=== PATIENT | female | born 1990 | race Caucasian/White ===

== ENCOUNTER → 2017-04-29 | Outpatient (CLI) | payer BC ==
--- NOTE | 2017-04-29 11:42 | DIAGNOSTIC IMAGING REPORT ---
RIGHT FOOT MIN 3 VIEWS HISTORY: 27 years-old Female RIGHT 1ST METATARSAL PAIN S/P FALL Right COMPARISON: None available TECHNIQUE: 3 views of the right foot FINDINGS: Mid foot alignment is anatomic. 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 Note is made of an os peroneum. No acute fracture, dislocation, significant degenerative changes or stress fracture. There is mild dorsal forefoot soft tissue swelling. IMPRESSION: Mild dorsal forefoot soft tissue swelling without acute osseous abnormality. The above report was generated using voice recognition software. It may contain grammatical, syntax or spelling errors. Electronically signed by: Abner Akbar M.D. 04/29/2017 11:40 AM Dictated Date/Time: 04/29/2017 11:39 AM
== END | disposition home or self-care (01) ==
LOC: C.RDSM 15:19
PROVIDERS: ATTEND Family Medicine
DX: M79.673 Pain in unspecified foot (principal)

== ENCOUNTER 2019-12-19 02:31 | Inpatient (IN) ==
[2019-12-19] MEDS ORDERED: LACTATED RINGER'S 1,000 ML IV PRN (03:18)
[2019-12-19] MEDS ORDERED: OXYTOCIN 30 UNITS/500 ML BAG IV PRN (03:18)
[2019-12-19 03:52] LABS: Hematocrit (blood only) 36.2 % (37-47); Mean Corpuscular Hemoglobin 29.1 pg (25-34); Mean Corpuscular Volume 87.9 fL (80-100); Mean Platelet Volume 11.5 fL (7.4-10.4); Platelet Count 178 K/uL (130-400); RDW Coefficient of Variation 14.4 % (11.5-14.5); RDW Standard Deviation 46.3 fL (36.4-46.3); Red Blood Count 4.12 M/uL (4.2-5.4); White Blood Count 13.07 K/uL (4.8-10.8)
[2019-12-19 04:11] LABS: Mean Corpuscular Hgb Conc 33.1 g/dL (32-36)
[2019-12-19] MEDS ORDERED: CITRIC ACID/SODIUM CITRATE 15 ML UDC PO SCH (06:00)
[2019-12-19] MEDS ORDERED: CEFAZOLIN 2000MG 2,000 MG/15 ML SYR IV SCH (06:00)
--- NOTE | 2019-12-19 08:07 | Labor Progress Brief Note ---
Date of Service December 19, 2019 Subjective Reason For Note: Routine Evaluation Current Pain Level(1-10): 8 Assessment & Plan (1) Rh negative status during : 29yo at 39.3 weeks GA. Labor 1. Fetus: Cat 1 2. Labor: Unchanged, Discussed AROM/Pitocin. Declining intervention at present. Recommend intervention if unchanged at next visit. 3. Vitals: WNL 4. GBS negative (2) Supervision of normal first : Physical Exam Genitourinary: OB Exam Abdomen: + vertex Manual OB Exam: + cervical dilation 5 cm, + cervical effacement 90% and + station 0 OB Exam Monitor Tr acing: + external FHT monitor used, + external uterine monitor used, + category I and + normal FHT variability Results & Data Vital Signs (Past 12 Hours) Vital Signs Temp Pulse Resp BP 12/19/19 07:34 64 132/73 12/19/19 02:58 72 130/77 12/19/19 02:52 36.6 C 72 18 130/77 Coding Level of Care Code None Diagnoses Rh negative status during O26.899; Z67.91 Supervision of normal first Z34.00
--- NOTE | 2019-12-19 09:36 | History & Physical Report ---
Date of Service December 19, 2019 Assessment & Plan (1) Rh negative status during : 29yo at 39.3 weeks GA. Labor 1. Fetus: Cat 1 2. Labor: Will discuss AROM/Pitocin. Declining intervention at present. 3. Vitals: WNL 4. GBS negative (2) Supervision of normal first : History of Present Illness Primary Care Provider: Efren Prescott DO 29yo at 39.3 weeks GA. Presents for labor. Denies VB, LOF. Good FM. complicated by Rh negative Allergies Allergy/AdvReac Type Severity Reaction Status Date / Time doxycycline Allergy Verified 12/15/19 09:14 minocycline Allergy Verified 12/15/19 09:14 Sulfa (Sulfonamide Allergy Verified 12/15/19 09:14 Antibiotics) Home Medications Home Medications Medication Instructions Recorded Confirmed Type PNV cmb#95-ferrous fumarate-FA 1 tab PO DAILY 12/19/19 12/19/19 History [] Patient History Medical History (Updated 06/01/19 @ 20:22 by Susana Gu, ) Chickenpox History of cardiac murmur as a child Surgical History (Updated 05/12/19 @ 09:36 by Fifi Uribe) S/P wisdom tooth extraction Family History (Updated 05/12/19 @ 09:38 by Fifi Uribe) Grandfather (Maternal) Diabetes Grandmother (Maternal) Diabetes Endometriosis Grandfather (Paternal) Diabetes Grandmother (Paternal) Diabetes Social History (Updated 05/12/19 @ 09:40 by Fifi Uribe) Preferred Language: Vietnamese Communication Ability: Effective Quality Assurance Required: No Beliefs That Will Affect Care: None marital status: marital status details: spouse: Efren Rasmussne (31) [phone] Current Living Situation: Spouse Current Living Situation Comment: lives with spouse 2 cats, 1 dog, spouse changes litter. current occupational status: employed current occupation: Teacher Feels Safe at Home: Yes Safety Concerns: Feels Safe At This Time Smoking Status: Never smoker Hx Alcohol Use: No Hx Substance Use: No Physical Exam Genitourinary: Manual OB Exam: + cervical dilation 5 cm, + cervical effacement 90% and + station -1 OB Exam Monitor Tracing: + external FHT monitor used, + external uterine monitor used, + category I and + normal FHT variability; no early decelerations present, no late decelerations present and no variable decelerations Results & Data Vital Signs (Past 12 Hours) Vital Signs Temp Pulse Resp BP 12/19/19 07:34 64 132/73 12/19/19 02:58 72 130/77 12/19/19 02:52 36.6 C 72 18 130/77 Coding Level of Care Code None Diagnoses Rh negative status during O26.899; Z67.91 Supervision of normal first Z34.00
[2019-12-19] MEDS ORDERED: LACTATED RINGER'S 1,000 ML IV SCH ×2 (11:00→13:05)
--- NOTE | 2019-12-19 11:00 | Anesthesiology Consultation ---
Date of Service December 19, 2019 Assessment & Plan ASA ASA2E Proposed Anesthesia Anesthesia Type: Spinal Risk / Benefits Reviewed With: PT / POA / Parent / Guardian, Accepts Plan and Informed Consent Obtained History Surgery Operation Date: 12/19/19 11:15 Proposed Procedures p Section in LD - J. Burton Woodson MD, FACOG Height/Weight Height: 5 ft 6 in Weight: 72.575 kg Allergies Allergy/AdvReac Type Severity Reaction Status Date / Time doxycycline Allergy Verified 12/15/19 09:14 minocycline Allergy Verified 12/15/19 09:14 Sulfa (Sulfonamide Allergy Verified 12/15/19 09:14 Antibiotics) Medications Home Medications Medication Instructions Recorded Confirmed Last Taken PNV cmb#95-ferrous fumarate-FA 1 tab PO DAILY 12/19/19 12/19/19 12/18/19 [] NPO Date Last Intake of Fluids: 12/19/19 Time Last Intake of Fluids: 00:00 Date Last Intake of Solids: 12/19/19 Time Last Intake of Solids: 00:00 Past Medical History Medical History (Updated 06/01/19 @ 20:22 by Susana Gu DO) Chickenpox History of cardiac murmur as a child Exercise / Class Metabolic Activity 1 > 8 Run/Swim/Ski/Tennis Past Family History Family History (Updated 05/12/19 @ 09:38 by Fifi Uribe) Grandfather (Maternal) Diabetes Grandmother (Maternal) Diabetes Endometriosis Grandfather (Paternal) Diabetes Grandmother (Paternal) Diabetes Past Surgical History Surgical History (Updated 05/12/19 @ 09:36 by Fifi Uribe) S/P wisdom tooth extraction Past Anesthesia History No Hx of Anesthesia Complications and No Family Hx of Anesthesia Complications History of PONV No Hx of PONV and No Hx of Motion Sickness Social History Smoking Status: Never smoker Hx Alcohol Use: No Hx Substance Use: No substance use type: does not use Review of Systems denies fever/cough/ colds/ chest pain/ SOB/ VITA Constitutional: no fever and no chills Respiratory: no cough and no dyspnea denies VITA Cardiovascular: no chest pain and no dyspnea on exertion Physical Exam Vital Signs Last Vital Signs Temp 36.6 C 12/19/19 02:52 Pulse 112 H 03/31/20 11:07 Resp 18 12/19/19 02:52 BP 135/88 12/19/19 11:07 ENMT Mouth: no TMJ abnormality and no dentition abnormality Thyromental Distance: > or= 3.5 Finger Breadths Mallampati Class: II Neck neck extension not limited Respiratory normal respiratory effort; no respiratory distress Auscultation: lungs clear to auscultation bilaterally Cardiovascular Rate/Rhythm: regular rate and regular rhythm Neurologic moves all extremities Psychiatric Orientation: alert and oriented x 3 Testing Laboratory Results 12/19/19 03:32
--- NOTE | 2019-12-19 11:01 | Obstetrical Progress Note ---
Date of Service exam is 5 bulging membranes. AROM. Presenting part then palpated ay breech. Confirmed on U/S, breech. Recommend C/S agrees section. The patient was counseled to the nature of the procedure including alternatives such as labor. Risks were discussed including bleeding infection injury to bowel bladder ureter vessels and even baby. Deep Vein thrombosis, pulmonary embolus discussed. Breakdown of incision reviewed. Deep vein thrombosis pulmonary embolus hernia and failure of the incision to heal were discussed Patient verbalized understanding of this and was given ample time to ask questions December 19, 2019 Results & Data Vital Signs (Past 12 Hours) Vital Signs Temp Pulse Resp BP 12/19/19 07:34 64 132/73 12/19/19 02:58 72 130/77 12/19/19 02:52 97.9 F 72 18 130/77 PG Care Time/CCT Total # of Minutes Spent Total Time Spent with Patient: Total time spent is greater than 50% in coordination of care (as documented) at patient's floor/unit and/or counseling patient: Coding Level of Care Code None
[2019-12-19] MEDS ORDERED: CITRIC ACID/SODIUM CITRATE 15 ML UDC ONE (11:02)
[2019-12-19] MEDS ORDERED: MoRPHine SULFATE PF 1 MG/ML 10 ML AMP/VIAL ONE (11:06)
[2019-12-19] MEDS ORDERED: fentaNYL citrate 100 MCG/2 ML VIAL ONE (11:06)
[2019-12-19] MEDS ORDERED: OXYTOCIN 10 UNITS/ML VIAL ONE (11:06)
[2019-12-19] MEDS ORDERED: MoRPHine SULFATE PF 1 MG/ML 10 ML AMP/VIAL INT SPINAL ONE (11:44)
[2019-12-19] MEDS ORDERED: NALOXONE HCL 0.08 MG in SYRINGE 1.8 ML IV PRN (11:44)
[2019-12-19] MEDS ORDERED: ePHEDrine sulfate 50 MG/ML AMP IV PRN (11:44)
[2019-12-19] MEDS ORDERED: NALOXONE HCL 1 MG in SODIUM CHLORIDE 0.9% 1000ML 1,000 ML IV PRN (11:44)
[2019-12-19] MEDS ORDERED: DiphenhydrAMINE HCL 50 MG/ML VIAL IV PRN (11:44)
[2019-12-19] MEDS ORDERED: ONDANSETRON INJ 2 MG/ML 2 ML VIAL IV PRN (11:44)
[2019-12-19] MEDS ORDERED: NALBUPHINE HCL INJ 10 MG/ML AMP IV PRN (11:44)
[2019-12-19] MEDS ORDERED: NALOXONE HCL 0.4 MG/1 ML VIAL/CARP IV PRN (11:44)
[2019-12-19] MEDS ORDERED: LACTATED RINGER'S 500 ML IV PRN (11:44)
[2019-12-19] MEDS ORDERED: PROMETHAZINE HCL 25 MG in SODIUM CHLORIDE 0.9% 50 ML IV PRN (11:44)
[2019-12-19] MEDS ORDERED: DC INTRASPINAL MORPHINE SCH (11:45)
[2019-12-19] MEDS ORDERED: NO NARCOTICS OR SEDATIVES SCH (11:45)
[2019-12-19] MEDS ORDERED: SODIUM CHLORIDE 0.9% 1000ML 1,000 ML IV SCH (11:45)
[2019-12-19 12:11] LABS: Base Excess Cord Arterial Bld -2.4 mEq/L (-9-1.8); Base Excess Cord Venous Blood -2.5 mEq/L (-7.7-1.9); CO2 Cord Arterial Blood 53 mmHg (39.1-73.5); Cord Venous Blood HCO3 22 mmol/L (18.4-26.8); Cord Venous Blood PCO2 38 mmHg (30.4-57.2); Cord Venous Blood PO2 28 mmHg (14.1-43.3); Cord Venous Blood pH 7.39 (7.20-7.44); HCO3 Cord Arterial Blood 25 mmol/L (19.7-28.5); Oxygen Sat Cord Arterial Blood < 60.0 % (<60); PO2 Cord Arterial Blood 22 mmHg (4.1-31.7); pH Cord Arterial Blood 7.29 (7.1-7.38)
--- NOTE | 2019-12-19 12:14 | Operative Report ---
PG Post Operative Report Pre & Post Diagnosis Operation Date: 12/19/19 11:15 Pre-Op Diagnosis: Labor, breech presentation. Post-Op Diagnosis: same I identified the patient and participated in the time-out.: Yes Procedure Operation Date: 12/19/19 11:15 Actual Procedures p Section in LD with of live male child at 1135(Not Applicable) - Los Woodson MD, FACOG Surgeon Los Woodson MD, FACOG Optical Engineering Technician Dr. Lundy Estimated Blood Loss 400 Findings Consistent with Post-Op Diagnosis Specimens cord gases, blood Description of Procedure Regional anesthetic was given by anesthesia patient had a Phelan catheter inserted by nursing patient was prepped and draped in supine position with a leftward tilt preoperative antibiotics were given timeout performed Pickups with teeth were used to test the skin site and it was found adequate for incision scalpel used to make a Pfannenstiel incision cutting down through subcutaneous fat through the fascia fascia was then dissected laterally with the curved Tavares's fascia was released superiorly and inferiorly from the rectus muscles with the curved Tavares scissors, rectus muscle split peritoneal cavity entered in a superior location. Opening enlarged to allow exposure bladder retractor placed Metzenbaums used to dissect away the bladder flap low segment transverse incision made on the uterus with scalpel entry was done bluntly with the tenon machine operator's finger hysterotomy incision extended with the tenon machine operator's finger in the usual fashion baby was delivered then by flexion of the breech and pressure from the engineering assistant on the abdomen, legs then delivered, arms swept across the chest and care taken to avoid over extension of the neck, baby was then delivered fully without difficulty without excessive force live vigorous infant cord clamped and cut cord gases obtained cord blood obtained placenta removed manually within ensured all placenta removed with a moist lap sponge uterus exteriorized IV Pitocin had been started by anesthesia and uterine tone improved. The uterus was closed in 2 layers first layer and 0 Monocryl running locked second layer 0 Monocryl nonlocked after generous irrigation and suction of the cul-de-sac and bladder flap regions hemostasis was excellent uterus was placed back in the peritoneal cavity and hemostasis was excellent rectus muscles were inspected and found to be dry fascia closed with 0 Vicryl subcutaneous fat closed with 3-0 Vicryl prior to this subcutaneous fat was irrigated skin closed with 4-0 subcuticular Monocryl incision Steri-Stripped urine was clear at the end of the procedure Note uterus was normal anatomically I attest to the content of the Intraoperative Record and any orders documented therein. Any exceptions are noted below.
--- NOTE | 2019-12-19 12:41 | Anesthesiology Progress Note ---
Date of Service December 19, 2019 Anesthesia Post Procedure Vital Signs Vital Signs: Temp Pulse Resp BP Pulse Ox 12/19/19 12:38 84 98 12/19/19 12:33 90 128/60 98 12/19/19 12:28 83 97 12/19/19 12:25 79 93 12/19/19 12:23 78 100 12/19/19 12:18 79 142/64 H 98 12/19/19 11:07 112 H 135/88 12/19/19 11:00 36.4 C L 18 12/19/19 07:34 36.4 C L 64 20 132/73 12/19/19 02:58 72 130/77 12/19/19 02:52 36.6 C 72 18 130/77 Transfer of Care Handoff Completed per policy Notes Mental Status: alert / awake / arousable and participated in evaluation Patient Amnestic to Procedure: Yes Nausea / Vomiting: adequately controlled Pain: adequately controlled Airway Patency, RR, SpO2: stable & adequate BP & HR: stable & adequate Hydration State: stable & adequate Neuraxial Anesthesia: was administered and sensory block is resolving Anesthetic Complications: no major complications apparent and Pt Satisfied with anesthetic care
[2019-12-19] MEDS ORDERED: SENNA 8.6 MG TAB PO PRN (13:05)
[2019-12-19] MEDS ORDERED: SUPERCREAM 0.870% 15 GM JAR EXT PRN (13:05)
[2019-12-19] MEDS ORDERED: BENZOCAINE 20% AER SPR 82.5 GM CAN EXT PRN (13:05)
[2019-12-19] MEDS ORDERED: MAGNESIUM HYDROXIDE SUSP 30 ML UDC PO PRN (13:05)
[2019-12-19] MEDS ORDERED: HYDROCORTISONE ACETATE 25 MG SUPP PR PRN (13:05)
[2019-12-19] MEDS ORDERED: DIPHTHERIA/TETANUS/PERTUSSIS 0.5 ML SYR/VIAL IM ONE (13:05)
[2019-12-19] MEDS: OXYTOCIN 20 UNITS in LACTATED RINGER'S 1,000 ML IV SCH ×2 (13:33→22:36)
[2019-12-19] MEDS: ACETAMINOPHEN 1,000 MG/100 ML VIAL IV PRN ×2 (14:14→23:51)
[2019-12-19] MEDS: SIMETHICONE 80 MG CHEW PO SCH ×3 (15:10→20:25)
[2019-12-19] MEDS: MoRPHine SULFATE 2 MG/ML CARP IV PRN (16:17)
[2019-12-19] MEDS: DOCUSATE SODIUM 100 MG CAP PO SCH (20:25)
[2019-12-20] MEDS: MoRPHine SULFATE 2 MG/ML CARP IV PRN (04:59)
[2019-12-20] MEDS ORDERED: MEPERIDINE HCL 50 MG/ML CARP IV PRN (05:44)
[2019-12-20] MEDS ORDERED: DiphenhydrAMINE HCL 50 MG/ML VIAL IV PRN (05:44)
[2019-12-20] MEDS ORDERED: KETOROLAC 30 MG/ML VIAL IV PRN (05:44)
[2019-12-20] MEDS ORDERED: PROMETHAZINE HCL 25 MG in SODIUM CHLORIDE 0.9% 50 ML IV PRN (05:44)
[2019-12-20] MEDS ORDERED: ONDANSETRON INJ 2 MG/ML 2 ML VIAL IV PRN (05:44)
[2019-12-20 06:31] LABS: Basophils # (auto) 0.01 K/uL (0-0.2); Basophils % (auto) 0.1 %; Eosinophils # (auto) 0.03 K/uL (0-0.5); Eosinophils % (auto) 0.3 %; Hematocrit (blood only) 29.4 % (37-47); Immature Granulocytes # (auto) 0.03 K/uL (0.00-0.02); Immature Granulocytes % (auto) 0.3 %; Lymphocytes # (auto) 1.45 K/uL (1.2-3.4); Lymphocytes % (auto) 14.8 %; Mean Corpuscular Hemoglobin 29.8 pg (25-34); Mean Corpuscular Volume 87.5 fL (80-100); Mean Platelet Volume 10.9 fL (7.4-10.4); Monocytes # (auto) 0.57 K/uL (0.11-0.59); Monocytes % (auto) 5.8 %; Neutrophils # (auto) 7.73 K/uL (1.4-6.5); Neutrophils % (auto) 78.7 %; Platelet Count 125 K/uL (130-400); RDW Coefficient of Variation 14.5 % (11.5-14.5); Red Blood Count 3.36 M/uL (4.2-5.4); White Blood Count 9.82 K/uL (4.8-10.8)
[2019-12-20] MEDS: OXYCODONE/ACETAMINOPHEN 5mg/325mg TAB PO PRN ×4 (06:42→20:42)
[2019-12-20] MEDS: IBUPROFEN 600 MG TAB PO PRN ×4 (06:42→20:42)
[2019-12-20] MEDS: PRENATAL VITAMIN 1 TAB PO SCH (07:59)
[2019-12-20] MEDS: SIMETHICONE 80 MG CHEW PO SCH ×4 (07:59→20:41)
[2019-12-20] MEDS: DOCUSATE SODIUM 100 MG CAP PO SCH ×2 (08:00→20:41)
--- NOTE | 2019-12-20 08:01 | Obstetrical Progress Note ---
Date of Service December 20, 2019 Assessment & Plan (1) care following delivery: POD #1 Cont current care encourage ambulation Subjective Ambulation: limited ambulation Passing Gas:: No Diet Tolerance:: clear liquids Lochia:: Small Feeding Type:: breast feeding Current Pain Level(1-10): 1 Physical Exam Constitutional WD/WN, vitals as above Respiratory normal respiratory effort, lungs clear to auscultation Cardiovascular RRR, no murmur, no edema Gastrointestinal (Abdomen) normal bowel sounds, soft, nontender, no hepatosplenomegaly (Incision CDI, etc neg) Results & Data Vital Signs (Past 12 Hours) Vital Signs Temp Pulse Resp BP Pulse Ox 12/20/19 05:10 18 96 12/20/19 04:45 98.4 F 70 18 110/69 96 12/20/19 03:30 16 97 12/20/19 02:20 16 97 12/20/19 01:15 18 99 12/20/19 00:15 16 95 12/20/19 00:01 99.1 F 71 16 116/67 95 12/19/19 23:15 16 96 12/19/19 22:00 18 96 12/19/19 21:00 18 96 12/19/19 20:00 18 99
[2019-12-20] MEDS ORDERED: NON-FORMULARY MEDICATION (Pnv Cmb#95-Ferrous Fumarate-Fa [Prenatal] 1 TAB) PO SCH (09:00)
[2019-12-20] MEDS ORDERED: bisacodyL 5 MG TABEC PO SCH (20:00)
[2019-12-21] MEDS: IBUPROFEN 600 MG TAB PO PRN ×5 (00:48→23:59)
[2019-12-21] MEDS: OXYCODONE/ACETAMINOPHEN 5mg/325mg TAB PO PRN ×3 (03:35→19:06)
[2019-12-21 06:27] LABS: Hematocrit (blood only) 28.3 % (37-47); Hemoglobin 9.2 g/dL (12.0-16.0)
[2019-12-21] MEDS: DOCUSATE SODIUM 100 MG CAP PO SCH ×2 (07:55→20:52)
[2019-12-21] MEDS: PRENATAL VITAMIN 1 TAB PO SCH (07:56)
[2019-12-21] MEDS: SIMETHICONE 80 MG CHEW PO SCH ×4 (07:56→20:52)
--- NOTE | 2019-12-21 08:56 | Obstetrical Progress Note ---
Date of Service December 21, 2019 Assessment & Plan (1) care following delivery: Wants d/c today, instructions reviewed. Subjective Ambulation: ambulating normally Voiding: no voiding problems Passing Gas:: Yes Diet Tolerance:: regular diet Lochia:: Small Feeding Type:: breast feeding Physical Exam Constitutional WD/WN, vitals as above Eyes PERRL, conjunctivae normal, anicteric sclerae Neck normal visual inspection Respiratory normal respiratory effort and able to speak in complete sentences; no respiratory distress and no labored breathing Cardiovascular Rate/Rhythm: regular rate and regular rhythm Extremities: no edema Chest (Breasts) Chest: normal inspection of chest Gastrointestinal (Abdomen) Inspection/Auscultation: abdomen normal to inspection and + abdominal surgical incision (c/d/i) Soft, postgravid Psychiatric A+Ox3, euthymic affect Genitourinary OB Exam Abdomen: + fundal height Fundus: + firm and + relation to umbilicus (fundus just below umbilicus); not tender Results & Data Vital Signs (Past 12 Hours) Vital Signs Temp Pulse Resp BP Pulse Ox 12/21/19 08:00 98.1 F 71 18 111/68 97 12/20/19 23:40 98.1 F 71 17 108/64 97
[2019-12-21] MEDS ORDERED: bisacodyL 10 MG SUPP PR PRN (12:11)
[2019-12-22] MEDS: OXYCODONE/ACETAMINOPHEN 5mg/325mg TAB PO PRN ×2 (04:03→10:44)
[2019-12-22] MEDS: IBUPROFEN 600 MG TAB PO PRN ×2 (04:03→08:30)
--- NOTE | 2019-12-22 08:18 | Obstetrical Progress Note ---
Date of Service December 22, 2019 Assessment & Plan (1) care following delivery: satisfactory post-op/ progress D/C to home scripts for percocet/motrin sent to listed pharmacy Subjective Ambulation: ambulating normally Voiding: no voiding problems Passing Gas:: Yes Diet Tolerance:: regular diet Lochia:: Small Feeding Type:: breast feeding Review of Systems All systems reviewed & are unremarkable except as noted in HPI & below Physical Exam Constitutional WD/WN, vitals as above Psychiatric A+Ox3, euthymic affect Genitourinary OB Exam Abdomen: + fundal height Fundus: + firm and + relation to umbilicus (2 below U) Results & Data Vital Signs (Past 12 Hours) Vital Signs Temp Pulse Resp BP Pulse Ox 12/22/19 07:30 97.9 F 73 14 116/70 97 12/21/19 23:30 98.2 F 74 18 130/85
[2019-12-22] MEDS: SIMETHICONE 80 MG CHEW PO SCH (08:30)
[2019-12-22] MEDS: DOCUSATE SODIUM 100 MG CAP PO SCH (08:30)
[2019-12-22] MEDS: PRENATAL VITAMIN 1 TAB PO SCH (08:30)
--- NOTE | 2019-12-24 11:22 | Discharge Summary ---
Date of Service December 24, 2019 Admission HPI Per Admitting Provider 29yo at 39.3 weeks GA. Presents for labor. Denies VB, LOF. Good FM. complicated by Rh negative required for breech presentation. Admission Exam (Per Admitting) Respiratory normal respiratory effort, lungs clear to auscultation Cardiovascular RRR, no murmur, no edema Gastrointestinal (Abdomen) normal bowel sounds, soft, nontender, no hepatosplenomegaly (Incision CDI, etc neg) Discharge Data Procedures Performed Operation Date: 12/19/19 11:15 Actual Procedures p Section in LD with of live male child at 1135(Not Applicable) - Los Woodson MD, FACOG Hospital Course (1) care following delivery: satisfactory post-op/ progress D/C to home scripts for percocet/motrin sent to listed pharmacy Coding Level of Care Code None Diagnoses care following delivery Z39.2
== END 2019-12-22 11:35 | disposition home or self-care (01) | DRG 788 ==
LOC: OPB 02:31 → 4S1 02:35 → 4S2 14:50